=== PATIENT | female | born 2005 | race Caucasian/White ===

== ENCOUNTER 2025-05-14 10:18 | Emergency (ER) | payer BC, SELFPAY ==
--- NOTE | ~2025-05-14 | US_ITS ---
EXAMINATION: US abdomen limited DATE: 05/14/2025 14:14 INDICATION: Right upper quadrant abdominal pain TECHNIQUE: Multiple grayscale and Doppler ultrasound images of the abdomen were obtained. COMPARISON: None FINDINGS: The pancreatic head and body are normal in appearance. The pancreatic tail is not visualized. The visualized proximal to mid inferior vena cava is normal. Liver has normal echogenicity and contour, with a smooth surface. No liver lesion identified. No intrahepatic biliary duct dilation suspected. Portal venous flow was seen in the hepatopetal, normal direction and has normal Doppler waveform. The gallbladder is normal in appearance. There is no cholelithiasis. The common bile duct measures 3-4 mm, which is normal. Sonographic Taylor sign was reported as negative by the surgical manager.Visualized proximal to mid abdominal aorta is normal. IMPRESSION: 1. Normal right upper quadrant ultrasound. Reviewed, dictated and finalized at location A. OR [employer]
[2025-05-14 10:25] VITALS: BP 104/61; PULSE 80; RESP 16; TEMP 36.6; O2SAT 98
--- NOTE | 2025-05-14 12:44 | ED.GENADULT ---
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 Patient states for the past 3 days or so, she has been having this pain that is constant which occasionally flares up. She states that it is 5/10 right now but will flare up to 8/10. She began to have nausea this morning. She would urgent care where she was reassured. Because of the nausea this morning, they did come to the ED for further evaluation. Denies fevers chills. She states that she has had dietary changes when she entered college but recently moved to her own apartment this year and has been trying a more healthy. Diet was previously fatty. Review of Systems Review of Systems: All systems reviewed & are unremarkable except as noted in HPI and below Exam Narrative: APPEARANCE: No acute distress, nontoxic, resting in bed EYES: EOMI HEENT: Normocephalic, atraumatic, OMM RESPIRATORY: No respiratory distress Clear to auscultation bilaterally with no rhonchi wheezing or rales. CARDIOVASCULAR: Regular rate and rhythm, 4/6 systolic murmur. ABDOMINAL: Soft, tenderness palpation of the right upper quadrant with positive Taylor sign. MUSCULOSKELETAl: Moves all extremities. No clubbing, cyanosis or edema. NEURO: Awake and alert. Following commands, speech normal, no focal deficits SKIN:: Warm, dry. No rashes lesions or abrasions PSYCHIATRIC: Normal affect/mood, Course Vital Signs Vital signs: Vital Signs Temperature 97.8 F 05/14/25 10:25 Pulse Rate 80 05/14/25 10:25 Respiratory Rate 16 05/14/25 10:25 Blood Pressure 104/61 05/14/25 10:25 Pulse Oximetry 98 05/14/25 10:25 Oxygen Delivery Room Air 05/14/25 10:25 Temperature 98.1 F 05/14/25 15:11 Pulse Rate 88 05/14/25 15:11 Respiratory Rate 20 05/14/25 15:11 Blood Pressure 104/60 05/14/25 15:11 Pulse Oximetry 98 05/14/25 15:11 Oxygen Delivery Room Air 05/14/25 10:25 MDM MDM Narrative Medical decision making narrative: 19-year-old female Presenting for right upper quadrant abdominal pain. On initial evaluation patient was in no acute distress afebrile, hemodynamic stable. Differentials include but are not limited to: ACS, cholecystitis, choledocolithiasis, ascending cholangitis, hepatitis, SBO, constipation, cancer Notable exam findings: Tenderness to palpation of the right upper quadrant with positive Taylor sign I personally reviewed the patient's lab result. Notable lab findings: Mild leukocytosis at 11.4, CMP without significant abnormalities. UA clear. Negative test. Prep quadrant ultrasound showed no evidence of cholelithiasis or cholecystitis. No clear source of the patient's pain at this time. It may be musculoskeletal in nature. She was advised to take Tylenol and ibuprofen for pain. She was advised follow-up with her PCP in the next week for re-evaluation. Patient was agreeable to this plan. Given strict return precautions. Differential Diagnosis Differential Diagnosis: ACS, cholecystitis, choledocolithiasis, ascending cholangitis, hepatitis, SBO, constipation, cancer Lab Data 05/14/25 14:16 05/14/25 14:16 Labs: Lab Results 05/14/25 05/14/25 05/14/25 Range/Units 13:00 14:00 14:16 WBC 11.4 H (4.5-10.0) K/mm3 RBC 4.74 (4.2-5.4) M/mm3 Hgb 13.0 (12.0-15.0) g/dL Hct 40.3 (37.0-47.0) % MCV 85.0 (80-100) fl MCH 27.4 (26-34) pg MCHC 32.3 (32-36) g/dl RDW 13.9 (11.5-14.5) % Plt Count 499 H (150-375) k/mm3 MPV 10.5 H (7.4-10.4) fl Immature Gran % (Auto) 0.4 (0-0.5) % Neut % (Auto) 72.8 (45.5-73.1) % Lymph % (Auto) 16.3 L (18.3-44.2) % [place] % (Auto) 6.7 (2.6-8.5) % Eos % (Auto) 3.0 (0-4.4) % Baso % (Auto) 0.8 (0.2-1.2) % Lymph # (Auto) 1.87 (0.9-3.2) K/mm3 [place] # (Auto) 0.8 H (0.1-0.6) K/mm3 Eos # (Auto) 0.3 (0-0.3) K/mm3 Baso # (Auto) 0.1 (0.0-0.1) K/mm3 Abs Immat Gran (auto) 0.05 H (0.00-0.031) K/mm3 Absolute Neuts (auto) 8.3 H (1.3-6.7) K/mm3 Absolute Nucleated RBC 0.000 (0.0-0.012) K/mm3 Nucleated RBC % 0.0 (0.0-0.2) % Sodium 139 (137-145) mmol/L Potassium 4.3 (3.4-5.0) mmol/L Chloride 107 (98-107) mmol/L Carbon Dioxide 21 L (22-30) mmol/L Anion Gap 11 (4-12) mmol/L BUN 6 L (7-17) mg/dL Creatinine 0.57 L (0.7-1.0) mg/dL Estim Creat Clear Calc 105 ml/min Estimated GFR > 60 (59 - ) Glucose 89 (65-110) mg/dL Calcium 9.7 (8.4-10.2) mg/dL Total Bilirubin 0.8 (0.2-1.3) mg/dL AST 25 (14-36) U/L ALT 19 (6-35) U/L Alkaline Phosphatase 92 (38-126) U/L Total Protein 9.4 H (6.3-8.2) g/dL Albumin 4.9 (3.5-5.1) g/dL Urine Color Yellow (Yellow) Urine Appearance Clear (Clear) Urine pH 5.5 (5.0-9.0) Ur Specific [place] 1.014 (1.001-1.035) Urine Protein Negative (Negative) mg/dL Urine Glucose (UA) Negative (Negative) mg/dL Urine Ketones Negative (Negative) mg/dL Ur Blood (Man) Negative (Negative) Urine Nitrate Negative (Negative) Urine Bilirubin Negative (Negative) Urine Urobilinogen 0.2 (<2.0) mg/dL Leukocyte Esterase Rfl Negative (Negative) DEE DEE/UL POC Urine HCG, Qual Negative (Negative) Imaging Data Radiologist's impression: ITS Impressions Abdomen Ultrasound 05/14/25 14:18 IMPRESSION: 1. Normal right upper quadrant ultrasound. Discharge Plan Discharge Clinical Impression: Abdominal pain Qualifiers: Abdominal location: right upper quadrant Qualified Code(s): R10.11 - Right upper quadrant pain Patient Disposition: Home Condition: Stable Instructions: Antibiotic Form, Abdominal Pain (ED) Additional Instructions: Labs were reassuring, urine was clear. It is unclear with source for her pain is at this time, this may be related to rib pain. You may take Tylenol and ibuprofen for pain. Follow-up with your PCP in the next week for re-evaluation. Return to the ED for any new or worsening symptoms. For pain, discomfort or temperature greater than or equal to 100.8 ?F please alternate the following 2 medications as needed. First medication- acetaminophen/Tylenol- 1000mg every 6-8 hours as needed for above indications. Second medication- ibuprofen/Motrin-600mg every 6-8 hours as needed for above indication. Patient Language: Thai Follow-up/Referrals: PHYSICIAN,BALANCING MACHINE SET UP WORKER [Primary Care Provider, Internal Medicine] Madhu Martinez MD [Physician, Family Practice]
--- OUTSIDE RECORDS SUMMARY | 2025-05-14 13:24 | XMS_ITS | Clinical Summary ---
Author Organization [facility] Address [address] [place] [id number] Care Team Providers Care Insecticide Supervisor Name Role Phone Lorraine Flores MD Primary Care Provider [phone] Allergies No known active allergies Medications No known medications Active Problems Problem Noted Date Diagnosed Date S/P TOF (tetralogy of Fallot) repair 10/03/2022 Pulmonary valve insufficiency 05/09/2016 Tetralogy of Fallot 08/23/2009 Encounters Date Type Department Care Team Description 02/24/2025 Telephone [facility] Pediatric Cardiology [facility] [address] [place] [address] [place] [address] Lorna Moran MD new meds from Last 3 Months Social History Tobacco Use Types Packs/Day Years Used Date Smoking Tobacco: Never Assessed Comments Unknown Sex and Gender Information Value Date Recorded Sex Assigned at Not on file 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 Gender Identity Not on file Sexual Orientation Not on file Last Filed Vital Signs Vital Sign Reading Time Taken Comments Blood Pressure 110/60 12/19/2024 11:29 AM CDT Pulse 89 12/19/2024 11:29 AM CDT Temperature 37.1 C (98.7 F) 12/19/2024 11:29 AM CDT Respiratory Rate 25 12/19/2024 11:29 AM CDT Oxygen Saturation 98% 12/19/2024 11:29 AM CDT Inhaled Oxygen Concentration - - Weight 61.3 kg (135 lb 2.3 oz) 12/19/2024 11:29 AM CDT Height 156.2 cm (5' 1.5) 12/19/2024 11:29 AM CD T Body Mass Index 25.12 12/19/2024 11:29 AM CDT Plan of Treatment Health Maintenance Due Date Last Done Comments Depression Screening 2004 Hepatitis C Screening 2004 HPV Vaccines (1 - 3-dose series) 2019 Meningococcal B Vaccine (1 of 2 - Standard) 2020 Regular Well Visit/Exam 18-64 2022 Covid-19 Vaccine (5 - 2024- season) 2025 12/12/2021, 03/31/2021, 09/10/2020, Additional history exists Influenza Vaccine (#1) 2025 4, 03/31/2023, 02/17/2022, Additional history exists DTaP/Tdap/Td Vaccine (5 - Td or Tdap) 01/09/2026 01/10/2016, 2004, 2004, Additional history exists Hepatitis B Screening Completed 2004 , 2004, 2004 Pneumococcal vaccine <65 Aged Out 005, 2004, 2004 No longer eligible based on patient's age to complete this topic Varicella Vaccines Completed 01/10/2016, 04/24/2006 Meningococcal Vaccine Completed 02/17/2022, 016 Insurance [facility] [place] ACCESS BLUE [place]ESS [place] Care Teams Insecticide Supervisor Relationship Specialty Start Date End Date Lorraine Flores MD [address] [place] [id number] PCP - General Pediatrics 12/19/24
--- OUTSIDE RECORDS SUMMARY | 2025-05-14 13:24 | XMS_ITS | Clinical Summary ---
Author Organization [facility] Address [address] [place] [address] Phone Care Team Providers Care Crumb Packer Name Role Phone Marcelo Spear MD Primary Care Provider [phone] Allergies No known active allergies Medications No known medications Active Problems No known active problems Family History Medical History Relation Name Comments Diabetes Father Cataract Other PGGF Glaucoma Neg Hx Macular Degen Neg Hx Strabismus Neg Hx Relation Name Status Comments Father Other PGGF Alive Social History Tobacco Use Types Packs/Day Years Used Date Smoking Tobacco: Never Smokeless Tobacco: Never Alcohol Use Standard Drinks/Week Comments Never 0 (1 standard drink = 0.6 oz pur e alcohol) Adolescent Education Answer Date Record ed Getting School Help Needed Not on file 12/29 Comments Unknown Sex and Gender Information Value Date Recorded Sex Assigned at Not on file Legal Sex Female 9:21 AM CDT Gender Identity Not on file Sexual Orientation Not on file Plan of Treatment Health Maintenance Due Date Last Done Comments CHLAMYDIA SCREENING (ANNUAL) 11-24 YEARS 2015 HPV VACCINES (1 - 3-dose series) 2019 DTAP/TDAP/TD VACCINES (1 - Tdap) 2023 HEPATITIS B VACCINES (1 of 3 - 19+ 3-dose series) 05/29 INFLUENZA VACCINE (#1) [address] [place] [id number] [facility] TRADITIONAL Care Teams Crumb Packer Relationship Specialty Start Date End Date Marcelo Spear MD [address] [place] [id number] PCP - General Pediatrics 02/14/21
--- OUTSIDE RECORDS SUMMARY | 2025-05-14 13:24 | XMS_ITS | Clinical Summary ---
Author Organization [email or web address] Address [address] [place] [address] Care Team Providers Care Job Superintendent Name Role Phone Marcelo Spear MD Primary Care Provider [phone] Source Comments [facility],non-owned Affiliates and Associated Physician Practices is amultiple site organization consisting of ambulatory clinics and hospital sitesin [place], [place], [place] and [place]. This disclosure is being madepursuant to the Care Everywhere program and may not contain all information available regarding this patient. Last updated 18.[email or web address] Allergies No known active allergies Medications * Be aware that medications may not be up to date on this document. Alwaysverify current medications with the patient. No known medications Active Problems Problem Noted Date Diagnosed Date Sore throat 10/01/2021 Social History Tobacco Use Types Packs/Day Years Used Date Smoking Tobacco: Never Smokeless Tobacco: Never Alcohol Use Standard Drinks/Week Comments Never 0 (1 standard drink = 0.6 oz pur e alcohol) Comments Unknown Sex and Gender Information Value Date Recorded Sex Assigned at Not on file Legal Sex Female 9:11 AM CDT Gender Identity Not on file Sexual Orientation Not on file Last Filed Vital Signs Vital Sign Reading Time Taken Comments Blood Pressure 114/74 10/01/2021 2:19 PM CDT Pulse 86 10/01/2021 2:19 PM CDT Temperature 36.9 C (98.4 F) 10/01/2021 2:19 PM CDT Respiratory Rate 18 10/01/2021 2:19 PM CDT Oxygen Saturation 100% 10/01/2021 2:19 PM CDT Inhaled Oxygen Concentration - - Weight 56.7 kg (125 lb) 10/01/2021 2:19 PM CDT Height - - Body Mass Index - - Plan of Treatment Health Maintenance Due Date Last Done Comments HIV SCREENING 2019 HPV VACCINE (1 - 3-dose series) 2019 CHLAMYDIA/GONORRHEA SCREENING 2020 MENINGOCOCCAL (Group B) VACCINE SHARED DECISION-MAKING (1 of 2 - Standard) 2020 HEPATITIS C SCREENING 06/21/2022 DTAP/TDAP/TD VACCINES (1 - Tdap) 2023 HEPATITIS B VACCINE (1 of 3 - 19+ 3-dose series) 2023 DEPRESSION SCREENING 05/28/2024 COVID-19 VACCINE (4 - 2024-2 6 season) 2025 03/31/2021, 09/10/2020, 08/20/2020 INFLUENZA VACCINE (#1) 2025 03/28/2021 ZOSTER VACCINE (1 of 2) 2054 HIB VACCINE Aged Out No longer eligi ble based on patient's age to complete this topic MENINGOCOCCAL GROUPS A/C/Y/W VACCINE Aged Out No longer eligible b ased on patient's age to complete this topic PNEUMOCOCCAL VACCINE Aged Out No long er eligible based on patient's age to complete this topic Insurance [facility] Care Teams Job Superintendent Relationship Specialty Start Date End Date Marcelo Spear MD [address] [place] [address] PCP - General Pediatrics 10/01/21
[2025-05-14 14:09] LABS: Add Urine Microscopic? NO; Appearance Urine Clear (Clear); Glucose Urine UA Negative (Negative); Leukocyte Esterase Ur Negative LEU/UL (Negative); Nitrate Urine Negative (Negative); Specific Grav Ur 1.014 (1.001-1.035)
[2025-05-14 14:24] LABS: Hematocrit 40.3 % (37.0-47.0); Hemoglobin 13.0 g/dL (12.0-15.0); Immature Granulocyte Percent A 0.4 % (0-0.5); Lymphocytes Absolute Auto 1.87 K/mm3 (0.9-3.2); Mean Corpuscular HGB Conc 32.3 g/dl (32-36); Mean Corpuscular Hemoglobin 27.4 pg (26-34); Mean Corpuscular Volume 85.0 fl (80-100); Nucleated Red Blood Cells Absolute Auto 0.000 K/mm3 (0.0-0.012); Nucleated Red Blood Cells Perc 0.0 % (0.0-0.2); Platelet Count Result 499 k/mm3 (150-375); Red Blood Count 4.74 M/mm3 (4.2-5.4); White Blood Count 11.4 K/mm3 (4.5-10.0)
[2025-05-14 14:34] LABS: Alanine Aminotransferase 19 U/L (6-35); Albumin Level 4.9 g/dL (3.5-5.1); Alkaline Phosphatase 92 U/L (38-126); Anion Gap 11 mmol/L (4-12); Aspartate Amino Transferase 25 U/L (14-36); Bilirubin,Total 0.8 mg/dL (0.2-1.3); Blood Urea Nitrogen 6 mg/dL (7-17); Calcium 9.7 mg/dL (8.4-10.2); Carbon Dioxide 21 mmol/L (22-30); Chloride 107 mmol/L (98-107); Estimated CRCL calculation 105 ml/min; Estimated Glomerular Filt Rate > 60; Glucose 89 mg/dL (65-110); Potassium 4.3 mmol/L (3.4-5.0); Sodium 139 mmol/L (137-145); Total Protein 9.4 g/dL (6.3-8.2)
[2025-05-14 14:40] LABS: BEDSIDEPREGUCG Negative (Negative)
[2025-05-14 15:11] VITALS: BP 104/60; PULSE 88; RESP 20; TEMP 36.7; O2SAT 98
== END 2025-05-14 15:13 | disposition home or self-care (01) ==
PROVIDERS: Emergency Provider Student in an Organized Health Care Education/Training Program
DX: R10.11 Right upper quadrant pain (principal)
CPT/HCPCS: 36415; 76705; 80053; 81003; 81025; 85025; 99284